=== PATIENT | male | born 1980 | race Caucasian/White ===

== ENCOUNTER 2020-09-22 23:28 | Emergency (ER) | payer OTHER, SELFPAY ==
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
[2020-09-22 23:44] VITALS: BP 130/90; BP 146/94; PULSE 113; PULSE 60; RESP 20; TEMP 37.3; O2SAT 96; O2SAT 98; BMI 17.0
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
--- NOTE | 2020-09-23 02:09 | PC.NURSE ---
PT OFF FLOOR TO CT.
[2020-09-23] MEDS: Amoxicillin/Potassium Clav 500 MG TABLET PO (02:49)
== END 2020-09-23 03:51 ==
PROVIDERS: Emergency Provider Emergency Medicine
DX: S09.22XA Traumatic rupture of left ear drum, initial encounter (principal); Y04.2XXA Assault by strike against or bumped into by another person, initial encounter; Y93.9 Activity, unspecified; Y92.9 Unspecified place or not applicable; Y99.9 Unspecified external cause status
CPT/HCPCS: 70450; 99284

== ENCOUNTER 2020-12-29 10:55 | Outpatient (REF) | payer OTHER, SELFPAY ==
[2020-12-29 11:41] LABS: COVID-19 Test Positive (Negative)
== END 2020-12-29 10:56 | disposition home or self-care (01) ==
LOC: HO.LAB 10:55
PROVIDERS: Visit Provider Internal Medicine
DX: Z20.822 Contact with and (suspected) exposure to COVID-19 (principal)
CPT/HCPCS: 36415; 87635; C9803; U0003; U0005

== ENCOUNTER 2021-03-10 14:02 | Emergency (ER) | payer OTHER, SELFPAY ==
[2021-03-10 14:07] VITALS: BP 123/83; PULSE 118; RESP 18; TEMP 36.9; O2SAT 95; BMI 17.4
--- NOTE | 2021-03-10 14:12 | ED.GENADULT ---
HPI - General Adult General Chief complaint: General Medical Stated complaint: rash Time Seen by Provider: 03/10/21 14:12 Source: patient Mode of arrival: ambulatory Limitations: no limitations History of Present Illness complaint: rash Onset (ago): week(s) (4) Location: face, upper extremity and lower extremity Radiation: non-radiation Severity: mild Quality: dull Pain Consistency: constant Relieving factors: none Exacerbating factors: none Associated symptoms: denies other symptoms Treatments prior to arrival: other (tried scabies treatment 1 month ago no relief) Related Data Previous Rx's Medication Instructions Recorded amoxicillin 500 mg-potassium 1 tab PO BID #13 tab 09/23/20 clavulanate 125 mg tablet (Augmentin) cephalexin 500 mg capsule 500 mg PO BID 7 Days #14 cap 03/10/21 doxycycline monohydrate 100 mg 100 mg PO BID 7 Days #14 tab 03/10/21 tablet erythromycin 5 mg/gram (0.5 %) eye 1 appl OPHTHALMIC-RIGHT BID 7 Days 03/10/21 ointment #3.5 g mupirocin 2 % topical ointment 1 appl TOPICAL BID 7 Days #15 g 03/10/21 Allergies Allergy/AdvReac Type Severity Reaction Status Date / Time No Known Allergies Allergy Verified 03/10/21 14:07 [No Known Allergies*] Review of Systems Review of Systems: Constitutional : No Fever, No Chills ENT/Mouth : No sore throat, No Rhinorrhea Eyes: No Eye Pain, No Swelling, No Redness Cardiovascular : No Chest Pain, No SOB Respiratory : No Cough, No Sputum Gastrointestinal : No Nausea, No Vomiting, No Diarrhea, No abdominal Pain Genitourinary : No Dysuria, No Hematuria Musculoskeletal : No joint pain, No Myalgias, No Joint Swelling Skin : No Skin Lesions, positive skin rash Neuro : No Weakness, No Numbness, No Headache Psych : No Anxiety, No Depression PMFSH Past Medical History Attestation statement: The following information was validated with the patient. Medical History Anxiety Depression Surgical History History of back surgery Social History Social History Alcohol intake: current Patient Tobacco Use Status: Current everyday Tobacco user Advance Directives: No Advance Directives Information Provided: No Physical Exam Vital Signs: Vital Signs: Last Vital Signs Temp 98.5 F 03/10/21 14:07 Pulse 118 H 03/10/21 14:07 Resp 18 03/10/21 14:07 BP 123/83 03/10/21 14:07 Pulse Ox 95 03/10/21 14:07 Body Mass Index 17.4 Appearance: Alert. Oriented X3. No acute distress. Eyes: Pupils equal, round and reactive to light. R eye area scant erythema lower lid ENT: Pharynx normal. Neck: Normal inspection. Neck supple. CVS: Normal heart rate and rhythm. Pulses normal. Respiratory: No respiratory distress. Breath sounds normal. Abdomen: Soft and nontender. Skin: Skin warm and dry. Normal skin color. multiple circular picked areas no abscess noted - on extremities mild erythema Extremities: No lower extremity edema. No calf ttp Neuro: Oriented X 3. No motor deficit. No sensory deficit. Medical Decision Making MDM Narrative Medical decision making narrative: 40 yo male with diffuse scabs and scant red areas no signs of abscess - has small red area near R eye he does use drugs but states this is not from picking while he is using - will cover for MRSA and use mupirocin instructed him to follow up if the areas do not clear Discharge Plan Discharge Clinical Impression: Cellulitis Qualifiers: Site of cellulitis: unspecified site Qualified Code(s): L03.90 - Cellulitis, unspecified Patient Disposition: Home, Self-Care Instructions: Cellulitis (ED) Additional Instructions: return to ED for any worsening symptoms or concerns Prescriptions: New cephalexin 500 mg capsule 500 mg PO BID 7 Days Qty: 14 RF: 0 doxycycline monohydrate 100 mg tablet 100 mg PO BID 7 Days Qty: 14 RF: 0 mupirocin 2 % ointment 1 appl topical BID 7 Days Qty: 15 RF: 0 erythromycin 5 mg/gram (0.5 %) ointment 1 appl ophthalmic-Right BID 7 Days Qty: 3.5 RF: 0 No Action amoxicillin-pot clavulanate [Augmentin] 500-125 mg tablet 1 tab PO BID Qty: 13 RF: 0
== END 2021-03-10 14:35 | disposition home or self-care (01) ==
LOC: HO.ED 14:20
PROVIDERS: Emergency Provider Emergency Medicine
DX: L03.90 Cellulitis, unspecified (principal); R21 Rash and other nonspecific skin eruption; Z79.899 Other long term (current) drug therapy
CPT/HCPCS: 99283